=== PATIENT | female | born 1980 | race Caucasian/White ===

== ENCOUNTER → 2016-03-19 | Outpatient (CLI) | payer BC ==
[~2016-03-19] MED LIST: AZIT250T81 PO; BENZ-22 PO; IBUP-793 PO; PREN1TAB76 PO
[2016-03-19 13:20] VITALS: BP 110/70
--- NOTE | 2016-03-19 13:20 | Urgent Care T Sheet Gen (E) ---
Intake General Temperature (Fahrenheit): 98.6 Pulse: 74 Blood Pressure Systolic: 110 Blood Pressure Diastolic: 70 Respirations: 18 SPO2: 100 Description of Symptoms Patient presents with a persistent, dry, irritated cough. Patient states during the first few days of February she had a cold with cough. States the cold symptoms resolved but the cough persisted. States she was starting to feel better however last week she and her family went skiing in [place] and her cough worsened while there. States she feels nauseous from all the forceful coughing and drainage. No fever. States she is training for a marathon which she runs in 14 days and she is concerned with the cough. Been trying OTC cough suppressants without improvement. History of Present Illness Allergies: Coded Allergies: No Known Drug Allergies (Unverified , 12/25/12) Home Meds Active Scripts Benzonatate (Tessalon Perles)100 Mg [id number] Mg PO TID PRN COUGH #20 CAP Prov:ELBERT SWAN PA 03/19/16 Reported Medications Ibuprofen (Motrin)600 Mg [id number] Mg PO Q6H PRN 12/27/12 Vits W-Ca,Fe,Fa(<1MG) ( Formula)1 Each Tablet1 Each PO DAILY 12/25/12 Respiratory Constitutional Symptoms: Malaise EENTM: No symptoms reported Respiratory: Cough Cardiovascular: No symptoms reported Gastrointestinal/Abdominal: Nausea (with coughing fits) Estimated Date of Delivery: 12-27-12 All Other Systems Reviewed Remaining Systems: All other systems reviewed with negative findings Past Krhujvr-Oenoqx-Fnxsmy Hx Reproductive System : 3 Abortions: 0 Living Children: 2 HIV/AIDS: Negative Physical Exam Physical Exam General Appearance: WD/WN No apparent distress Eyes, Ears, Nose, Throat Ex: TMs normal Pharynx normal Other (nose is clear. throat surprisingly isn't as irritated as I would expect) Neck Exam: SuppleNo Lymphadenopathy Respiratory Exam: Lungs clear (prolonged, constant, dry, irritated cough during exam. talking triggers a cough. deep breaths trigger a cough.) Cardiovascular Exam: Regular rate, rhythm Progress/Orders Lab Results [place] [place] Medications Administered Medications Adminstered: Depomedrol (80mg IM injection into R deltoid Lot [id number] Exp 11/2016) Departure Urgent Care Impression Impression: Primary Impression: Cough Additional Impression: Inflammation of lung Departure Disposition: HOME OR SELF-CARE Condition: Stable Referrals: MECCA HECK MD (PCP) Additional Instructions: With the patient's nausea, she wanted to make sure she wasn't and that the nausea was related to drainage/constant cough. Urine was negative. The patient's O2 saturation is 100% and her lungs were clear. I believe her constant cough is due to lung inflammation and not infection. She received a steroid shot here in clinic. I have also sent home a Medrol dose pack prescription which she may fill on Saturday if the symptoms persist. Tessalon pearls prn for cough. Rest. Fluids Return as needed Patient understands DC instructions. All questions were answered. Scripts Benzonatate (Tessalon Perles)100 Mg [id number] Mg PO TID PRN COUGH #20 CAP Prov:ELBERT SWAN 03/19/16 End of report . ELBERT SWAN Mar 19, 2016 12:49
--- NOTE | 2016-03-22 15:04 | Urgent Care Follow Up Note (E) ---
Urgent Care Follow Up Note Patient called to update on her cough. Was seen and treated on Saturday for a persistent, dry cough which had been present for 1 month. Patient was given a Depo Medrol shot in clinic and was prescribed Tessalon pearls 100mg TID. Patient was given a prescription for Medrol dose pack but was told to wait and see how she would respond to the shot before filling. She started taking the Medrol dose pack on Saturday. Patient is running in a marathon in less than 2 weeks and she is concerned with cough and lack of improvement. She states she feels great aside from the tickle in her throat/lungs which then causes a coughing fit. She is to continue with the Medrol dose pack, as directed. I instructed her to increase her Tessalon pearls to 200mg TID prn. I also suggested she take Claritin daily. We discussed using an albuterol inhaler however with her 100% O2 saturation on Saturday and with the fact that she feels great despite the dry cough, we decided against that. I did however prescribe a Z-Apolinar, based on length of illness. Again, I continue to believe her cough is due to constant lung inflammation/ irritation, and she agrees. Hopeful this will give some relief so that her lungs can heal before she runs her marathon. Return as needed. All questions were answered. Scripts Azithromycin (Zithromax Z-Apolinar)6 Tab/Pkt [id number] Mg PO SEE INSTRUCTIONS #6 TAB Ref 0 Day One: Take 2 tablets by mouth Days Two-Five: Take 1 tablet by mouth Prov:ELBERT SWAN 03/22/16 Benzonatate (Tessalon Perles)100 Mg [id number] Mg PO TID PRN COUGH #20 CAP Prov:ELBERT SWAN 03/19/16 ELBERT SWAN Mar 22, 2016 15:04
== END ==
LOC: MHUC 12:07
PROVIDERS: ATTEND Physician Assistant
DX: R05 Cough (principal)
CPT/HCPCS: 81025; 96372; 99213

== ENCOUNTER → 2016-06-29 | Outpatient (CLI) | payer BC ==
[~2016-06-29] MED LIST changes: +CEPH500C PO; +FLUT15CR TP; +ONDA4TAB8 PO
[2016-06-29 18:04] VITALS: BP 130/66
--- NOTE | 2016-06-29 18:04 | Urgent Care T Sheet Gen (E) ---
Intake General Temperature (Fahrenheit): 98.3 Pulse: 78 Blood Pressure Systolic: 130 Blood Pressure Diastolic: 66 Respirations: 16 SPO2: 98 Chief Complaint: rash on leg Source: Patient Exam Limitations: No limitations History of Present Illness Initial Comments Pt reports that she thinks she may have poison yvan or a staph infection. She first noticed a itchy bump on her posterior R leg on Saturday, like a bug bite, which then spread to form other bumps. It really started spreading the next day , and she went to see her PCP yesterday morning. At that time, it was thought to be contact dermatitis, and she was given triamcinolone cream 0.1% to apply twice a day. The rash has continued to spread from there, though, and is so itchy that she scratches it at night, and she's noticed that it is oozing and feels hot now, and it is red. It doesn't look or feel quite like staph, which she has had previously, but it's more itchy and painful than her usual poison yvan rashes. She is wondering if this may be due to the location, as her clothes rub on it, and she feels it all the time sitting and standing. [place] time, so she thinks it is possible she was exposed to plants there, though she didn't see any poison yvan specifically. Pt reports that she got some Hibiclens, as she used for her previous staph infection, but this has not helped. She denies any fever, chills, or malaise. She has never had shingles, but did have chicken pox as a child. Onset & Duration: Unsure, Days (4) Timing: Still present, Worse Severity: Moderate Associated Symptoms: None Similar Sympotms Previously: Yes (with poison yvan, but this is worse) Allergies: Coded Allergies: No Known Drug Allergies (Unverified , 12/25/12) Home Meds Active Scripts Azithromycin (Zithromax Z-Apolinar)6 Tab/Pkt [id number] Mg PO SEE INSTRUCTIONS #6 TAB Ref 0 Day One: Take 2 tablets by mouth Days Two-Five: Take 1 tablet by mouth Prov:ELBERT SWAN 03/22/16 Benzonatate (Tessalon Perles)100 Mg [id number] Mg PO TID PRN COUGH #20 CAP Prov:ELBERT SWAN Yeison GILLIAM 03/19/16 Reported Medications Ibuprofen (Motrin)600 Mg [id number] Mg PO Q6H PRN 12/27/12 Vits W-Ca,Fe,Fa(<1MG) ( Formula)1 Each Tablet1 Each PO DAILY 12/25/12 Respiratory Constitutional Symptoms: No syptoms reportedNo Chills, No Fever, No Malaise EENTM: No symptoms reported Respiratory: No symptoms reported Cardiovascular: No symptoms reported Gastrointestinal/Abdominal: No symptoms reported Genitourinary: No symptoms reported : Yes (Eleven weeks.) Musculoskeletal: No symptoms reported Skin: See HPI Neurological: No symptoms reportedNo Numbness, No Tingling Immunologic/Allergies: See HPI All Other Systems Reviewed Remaining Systems: All other systems reviewed with negative findings Past Qgflihp-Qhzqix-Djutss Hx Reproductive System : 3 Abortions: 0 Living Children: 2 HIV/AIDS: Negative Physical Exam Physical Exam General Appearance: WD/WN No apparent distress Eyes, Ears, Nose, Throat Ex: PERRL/EOMI Neck Exam: Full range of motion Supple Skin Exam: Normal color Warm/dry/intact (apart from rash on R posterior thigh ) Rash (Dull erythema, slightly raised into central plaque measuring about 7cm x 9cm, with multiple satellite lesions in thin trails from the central plaque, consistent with scratching/dermatographic lesions. No large blisters noted but plaque is oozing a thin layer of serous fluid. Slight increased warmth to area. No tenderness to surrounding skin; minimal tenderness to palpation on exam. ) Extremity Exam: Non-tender Full range of motion No pedal edema Neurologic/Psychiatric Exam: Oriented times 4 Mood/affect nml Departure Urgent Care Impression Chief Complaint: rash on leg Impression: Primary Impression: Contact dermatitis Qualified Code: L23.9 - Allergic contact dermatitis, unspecified cause Departure Disposition: HOME OR SELF-CARE Condition: Stable Referrals: MECCA HECK MD (PCP) Additional Instructions: Discussed with pt that I do think this is still more consistent with dermatitis than either staph or shingles. Because of her early , oral steroids are not a good option, so I suggest that we continue to treat this more conservatively. She should be able to use a slightly higher potency steroid cream to help with the inflammation; she can use this up to 4 times daily for a day or two, but warned her to use as little as possible, and decrease use as soon as possible, to avoid side effects. I also think she can use calamine lotion to dry this lesion and decrease the itching, and she may want to keep it covered at night to avoid scratching it accidently. Discussed that irritation of the lesion will continue the inflammation for longer, and increase the risk of getting an infection from scratching. Finally, she should be okay to use cetirizine 10mg up to twice a day for a few days; this is recommended by two allergists as the most effective antihistamine for urticarial reactions and should be safe during , particularly with short-term use. If she is getting fever, chills, malaise, or the rash is increasing in redness, heat, or size, or begins to ooze white or opaque yellow material, I want her to follow up urgently for possible antibiotics. If it is not improving but not worsening, I want her to continue this treatment and check with her OB on Saturday. Reiterated that I don't want to use oral steroids for this without agreement from them; pt agrees. Pt states understanding and agrees to plan. All questions answered. Scripts Fluticasone Propionate 15 Gm Cream..g.2 Dose TP BID #15 GM Apply to affected area twice daily until resolved, not to exceed 2 weeks. Prov:BENJAMIN MIGUEL 06/29/16 End of report . BENJAMIN MIGUEL Jun 29, 2016 18:04
== END ==
LOC: MHUC 16:52
PROVIDERS: ATTEND Physician Assistant Medical
DX: L23.9 Allergic contact dermatitis, unspecified cause (principal)
CPT/HCPCS: 99212

== ENCOUNTER 2016-07-02 19:29 | Emergency (ER) | payer BC ==
[~2016-07-02] VITALS: Ht 162.6 cm; Wt 65.0 kg
[~2016-07-02 19:29] MED LIST changes: -CEPH500C PO; -ONDA4TAB8 PO
--- OUTSIDE RECORDS SUMMARY | 2016-07-02 19:35 | XMS REPORT | Continuity of Care Document ---
Author Author [facility] Organization [facility] Address Unknown Phone Unavailable Care Team Providers Care Budder Name Role Phone Overholt, Zakiya Latham MD PP [phone] Insurance Providers Payer Name Policy Number Subscriber Name Relationship [employer] [id number] Summer Mars 20 Self / Same As Patient Problems Medical Problem Onset Date Delivery normal 12/25/12 Allergies, Adverse Reactions, Alerts Allergen Type Severity Reaction Last Updated No Known Drug Allergies 12/25/12 Medications Medication Dose Units Route Sig Qty Days Ibuprofen (Motrin) 600 Mg PO Q6H PRN Vits W-Ca,Fe,Fa(<1MG) ( Formula) 1 Each PO DAILY Response Recorded Date/Time Status not known Unknown Results Test Date Result Interp. Ref. Range Basophils # (Auto) December 25, 2012 7:50am 0.0 10^3/uL - Basophils (%) (Auto) December 25, 2012 7:50am 0 % N 0-2 Eosinophils # (Auto) December 25, 2012 7:50am 0.1 10^3/uL - Eosinophils (%) (Auto) December 25, 2012 7:50am 1 % N 0-4 Hematocrit December 25, 2012 7:50am 36.10 % N 35.00-45.00 Hemoglobin December 26, 2012 6:10am 12.9 g/dL N 12.0-15.5 Lymphocytes # (Auto) December 25, 2012 7:50am 1.3 X 10^3 - Lymphocytes (%) (Auto) December 25, 2012 7:50am 13 % L 20-46 Mean Corpuscular Hemoglobin December 25, 2012 7:50am 30.4 PG N 26.0-34.0 Mean Corpuscular Hemoglobin Concent December 25, 2012 7:50am 34.1 g/dL N 31.0- 37.0 Mean Corpuscular Volume December 25, 2012 7:50am 89 FL N 80-100 Mean Platelet Volume December 25, 2012 7:50am 11.3 FL H 6.0-9.5 Monocytes # (Auto) December 25, 2012 7:50am 0.6 X 10^3 - Monocytes (%) (Auto) December 25, 2012 7:50am 6 % N 3-11 Neutrophils # (Auto) December 25, 2012 7:50am 8.0 X 10^3 - Neutrophils (%) (Auto) December 25, 2012 7:50am 80 % H 51-67 Platelet Count December 25, 2012 7:50am 197 10^3/uL N 150-450 Red Blood Count December 25, 2012 7:50am 4.04 10^6/uL N 4.00-5.00 Red Cell Distribution Width December 25, 2012 7:50am 13.1 % N 11.8-15.6 Urine Bilirubin December 25, 2012 4:30pm Negative - Urine Blood December 25, 2012 4:30pm Negative - Urine Clarity December 25, 2012 4:30pm Clear - Urine Collection Type December 25, 2012 4:30pm Catheter - Urine Color December 25, 2012 4:30pm Yellow - Urine Glucose (UA) December 25, 2012 4:30pm Negative - Urine Ketones December 25, 2012 4:30pm 1+ H - Urine Leukocyte Esterase December 25, 2012 4:30pm Negative - Urine Nitrite December 25, 2012 4:30pm Negative - Urine Protein December 25, 2012 4:30pm Negative - Urine Specific [place] December 25, 2012 4:30pm <=1.005 - Urine Urobilinogen December 25, 2012 4:30pm 0.2 mg/dL - Urine pH December 25, 2012 4:30pm 6.5 - White Blood Count December 25, 2012 7:50am 9.98 10^3/uL N 4.0-11.0 Encounters Encounter Location Date/Time Discharged Inpatient [facility] 12/25/12 7:33am
[2016-07-02] MEDS ORDERED: CEPH500C PO (20:00)
[2016-07-02] MEDS ORDERED: ONDA4TAB8 PO (20:00)
--- NOTE | 2016-07-02 20:01 | NUR ---
OB NURSE HERE TO ASSESS FHT
[2016-07-02 20:24] VITALS: BP 109/60
== END 2016-07-02 20:25 | disposition home or self-care (01) ==
LOC: ED 19:29
DX: O21.8 Other vomiting complicating pregnancy (principal); O98.819 Other maternal infectious and parasitic diseases complicating pregnancy, unspecified trimester; L03.317 Cellulitis of buttock; R50.81 Fever presenting with conditions classified elsewhere; Z3A.00 Weeks of gestation of pregnancy not specified
CPT/HCPCS: 99282; 99283

== ENCOUNTER → 2016-08-14 | Outpatient (CLI) | payer BC ==
[~2016-08-14] MED LIST changes: +CEPH500C PO; +ONDA4TAB8 PO
--- NOTE | 2016-08-14 15:48 | Diagnostic Imaging Report ---
INDICATION: anatomical survey. TECHNIQUE: Multiple real-time grayscale images were obtained over the gravid uterus. COMPARISON: None. FINDINGS: The cervix is closed and measures 4.1 cm. Single live intrauterine at 19 weeks 1 day by today's sonographic measurements. presentation is variable throughout the exam. Placenta is located posteriorly with no placenta previa. Three-vessel cord is visualized. Normal amniotic fluid index. heart rate measures 147 beats per minute. Good visualization of the stomach, kidneys, bladder, brain, aorta, cord insertion, four-chamber heart, spine, and extremities. No acute abnormality identified. Biometrical measurements are as follows: Biparietal 4.3 cm, age 19 weeks 1 days. Head circumference 15.7 cm, age 18 weeks 5 days. Abdominal circumference 14.1 cm, age 19 weeks 4 days. Femur length 2.9 cm, age 19 weeks 0 days. Sonographic estimate age: 19 weeks 1 days. Sonographic estimated date of delivery: 01/07/2017. Estimated Weight: 276 gm (+/- 40 gm). LMP percentile: 86%. heart rate: 147 beats per minute. number: 1 of 1. IMPRESSION: Single live intrauterine at 19 weeks 1 day by today's sonographic measurements. Normal anatomical survey. Dictated by: Dictated on workstation # [id number]
== END ==
LOC: RAD 14:37
PROVIDERS: ATTEND Family Medicine
DX: Z36 Encounter for antenatal screening of mother (principal); Z3A.19 19 weeks gestation of pregnancy
CPT/HCPCS: 76805